=== PATIENT | female | born 2000 | race American Indian/Alaskan Native ===

== ENCOUNTER 2020-10-08 19:17 | Emergency (ER) | payer SELFPAY ==
[2020-10-08 20:09] VITALS: BP 136/85
[2020-10-08 20:33] LABS: Basophils % (Auto) 0.4 % (0.0-1.8); Eosinophils # (Auto) 0.1 K/mm3 (0.0-0.4); Eosinophils % (Auto) 1.2 % (0.0-4.3); Hematocrit 36.9 % (30.3-42.9); Hemoglobin 12.5 gm/dl (10.1-14.3); Lymphocytes # (Auto) 1.5 K/mm3 (1.2-5.4); Lymphocytes % (Auto) 17.7 % (13.4-35.0); Mean Corpuscular HGB Conc 34 % (30-34); Mean Corpuscular Volume 91 fl (79-97); Monocytes # (Auto) 0.7 K/mm3 (0.0-0.8); Monocytes % (Auto) 8.7 % (0.0-7.3); Platelet Count 305 K/mm3 (140-440); Red Blood Count 4.07 M/mm3 (3.65-5.03); Red Cell Distribution Width 14.5 % (13.2-15.2)
[2020-10-08 20:48] LABS: INR 1.11 (0.87-1.13)
--- NOTE | 2020-10-08 21:22 | Emergency Department Report ---
<SOPHIE FERNÁNDEZ - Last Filed: 10/08/20 22:25> ED Female HPI - General Chief complaint: Vaginal Bleeding Stated complaint: SPOTTING Time Seen by Provider: 10/08/20 20:04 Source: patient Mode of arrival: Ambulatory Limitations: No Limitations - History of Present Illness Initial comments: 20-year-old F [place] female with a new discovered presents emerge department complaining of pelvic pain and vaginal bleeding of unknown etiology which started earlier today. Reports no fever, chills, sweats, no trauma, no nausea, no vomiting, chest pain. MD Complaint: vaginal bleeding, vaginal discharge, pelvic pain Location: suprapubic Radiation: suprapubic Severity: mild, moderate Quality: cramping, dull Consistency: constant Worsens with: none Are you Now?: Yes Associated Symptoms: vaginal bleeding. denies: nausea/vomiting, headaches, loss of appetite, dysuria, shortness of breath, syncope, weakness - Related Data Home Medications Medication Instructions Recorded Confirmed Last Taken Tablet 1 tab PO DAILY 11/01/14 11/27/14 11/23/14 Previous Rx's Medication Instructions Recorded Last Taken Type Docusate Sodium [Colace] 100 mg PO QHS PRN #30 capsule 11/28/14 Unknown Rx Ferrous Sulfate [Feosol 325 MG tab] 325 mg PO BID #60 tablet 11/28/14 Unknown Rx Ibuprofen [Motrin 600 MG tab] 600 mg PO Q6H PRN #60 tablet 11/28/14 Unknown Rx Vit-Fe Fumar-FA [ 1 each PO QDAY #30 tablet 11/28/14 Unknown Rx Vitamin] labetaloL [Labetalol 200mg TAB] 400 mg PO BID #120 tablet 11/28/14 Unknown Rx oxyCODONE /ACETAMINOPHEN [Percocet 2 tab PO Q4H PRN #40 tablet 11/28/14 Unknown Rx 5/325] Acetaminophen [Tylenol] 1 - 2 tab PO Q6HR PRN #30 tablet 10/09/20 Unknown Rx Allergies Allergy/AdvReac Type Severity Reaction Status Date / Time No Known Allergies Allergy Verified 11/01/14 01:05 ED Review of Systems Comment: All other systems reviewed and negative ED Past Medical Hx - Past Medical History Hx Hypertension: No Hx Congestive Heart Failure: No Hx Diabetes: No Hx Deep Vein Thrombosis: No Hx Renal Disease: No Hx Sickle Cell Disease: No Hx Seizures: No Hx Asthma: No Hx COPD: No Hx HIV: No - Social History Smoking Status: Never Smoker Substance Use Type: None - Medications Home Medications: Home Medications Medication Instructions Recorded Confirmed Last Taken Type Tablet 1 tab PO DAILY 11/01/14 11/27/14 11/23/14 History Docusate Sodium [Colace] 100 mg PO QHS PRN #30 capsule 11/28/14 Unknown Rx Ferrous Sulfate [Feosol 325 MG tab] 325 mg PO BID #60 tablet 11/28/14 Unknown Rx Ibuprofen [Motrin 600 MG tab] 600 mg PO Q6H PRN #60 tablet 11/28/14 Unknown Rx Vit-Fe Fumar-FA [ 1 each PO QDAY #30 tablet 11/28/14 Unknown Rx Vitamin] labetaloL [Labetalol 200mg TAB] 400 mg PO BID #120 tablet 11/28/14 Unknown Rx oxyCODONE /ACETAMINOPHEN [Percocet 2 tab PO Q4H PRN #40 tablet 11/28/14 Unknown Rx 5/325] Acetaminophen [Tylenol] 1 - 2 tab PO Q6HR PRN #30 tablet 10/09/20 Unknown Rx ED Physical Exam - General Limitations: No Limitations General appearance: alert, in no apparent distress - Head Head exam: Present: atraumatic, normocephalic - Eye Eye exam: Present: normal appearance, PERRL, EOMI Pupils: Present: normal accommodation - ENT ENT exam: Present: mucous membranes moist - Neck Neck exam: Present: normal inspection - Respiratory Respiratory exam: Present: normal lung sounds bilaterally. Absent: respiratory distress, wheezes, chest wall tenderness, accessory muscle use - Cardiovascular Cardiovascular Exam: Present: regular rate, normal rhythm. Absent: systolic murmur, diastolic murmur, rubs, gallop - GI/Abdominal GI/Abdominal exam: Present: soft, tenderness (Suprapubic region with palpation.), normal bowel sounds - Extremities Exam Extremities exam: Present: normal inspection - Back Exam Back exam: Present: normal inspection - Neurological Exam Neurological exam: Present: alert, oriented X3 - Psychiatric Psychiatric exam: Present: normal affect, normal mood - Skin Skin exam: Present: warm, dry, intact, normal color. Absent: rash ED Course - Consultations Consultation #1: 10/08/20 22:25 Patient signed out to physician apartment community assistant manager Red oSEDO still pending pelvic ultrasound results patient is comfortable in room no acute distress ED Medical Decision Making - Lab Data Result diagrams: 10/08/20 20:17 Lab Results 10/08/20 10/08/20 10/08/20 Range/Units 20:17 20:17 20:17 WBC 8.5 (4.5-11.0) K/mm3 RBC 4.07 (3.65-5.03) M/mm3 Hgb 12.5 (10.1-14.3) gm/dl Hct 36.9 (30.3-42.9) % MCV 91 (79-97) fl MCH 31 (28-32) pg MCHC 34 (30-34) % RDW 14.5 (13.2-15.2) % Plt Count 305 (140-440) K/mm3 Lymph % (Auto) 17.7 (13.4-35.0) % [place] % (Auto) 8.7 H (0.0-7.3) % Eos % (Auto) 1.2 (0.0-4.3) % Baso % (Auto) 0.4 (0.0-1.8) % Lymph # (Auto) 1.5 (1.2-5.4) K/mm3 [place] # (Auto) 0.7 (0.0-0.8) K/mm3 Eos # (Auto) 0.1 (0.0-0.4) K/mm3 Baso # (Auto) 0.0 (0.0-0.1) K/mm3 Seg Neutrophils % 72.0 H (40.0-70.0) % Seg Neutrophils # 6.1 (1.8-7.7) K/mm3 PT 14.2 (12.2-14.9) Sec. INR 1.11 (0.87-1.13) HCG, Quant 88685 H (0-4) mIU/mL ED Disposition Clinical Impression: Threatened miscarriage in early , Abdominal pain during in first trimester, Vaginal bleeding in patient after first trimester Disposition: - TO HOME OR SELFCARE Condition: Stable Instructions: Abdominal Pain During , Entj-[id number], Threatened Miscarriage, Bedd-ft-Eevo, Vaginal Bleeding During , First Trimester, [id number] Additional Instructions: Lab test results were reviewed and are all nonactionable. Transvaginal ultrasound showed bicornate uterus with single IUP on the left measuring 5 weeks and 6 days with heart rate of 81 bpm. Therefore maintain a complete pelvic rest, take Tylenol as needed for pain and follow-up with your MACHINE TOOL TECHNICIAN INSTRUCTOR physician in 3 to 5 days for reevaluation. Return to the ED immediately if symptoms get worse. Prescriptions: Acetaminophen [Tylenol] 1 - 2 tab PO Q6HR PRN #30 tablet PRN Reason: Pain , Severe (7-10) Referrals: SACHIN DOMINGUEZ MD [Staff Physician] - 3-5 Days Print Language: TURKMEN <RED ALFARO - Last Filed: 10/09/20 02:05> ED Review of Systems ROS: Stated complaint: SPOTTING Other details as noted in HPI ED Course Vital Signs 10/08/20 10/08/20 20:06 20:08 Temperature 99.1 F Pulse Rate 89 Respiratory 18 Rate Blood Pressure 136/85 [Right] O2 Sat by Pulse 100 Oximetry ED Medical Decision Making - Lab Data Result diagrams: 10/08/20 20:17 - Radiology Data Radiology results: report reviewed, image reviewed [facility] [address] [place] [address] Ultrasound Report Signed Patient: REJI MADRID MR#: [id number] 42 : 2000 Acct:[id number] Age/Sex: 20 / F ADM Date: 10/08/20 Loc: ED Attending Dr: Ordering Physician: JULES SENA Date of Service: 10/08/20 Procedure(s): US OB <= 14 weeks fetus Accession Number(s): [id number] cc: JULES SENA US OB <= 14 weeks fetus INDICATION / CLINICAL INFORMATION: Vaginal bleeding. COMPARISON: None available. FINDINGS: Single, viable intrauterine , heart rate 81. There is some degree of bicornuate uterus, and the thecal sac is on the left side. [place]-rump length measures 2.4 mm, corresponding to a gestational age of 5 weeks 6 days. Left ovary is normal. Right ovary cannot be identified. There is only very minimal free fluid. IMPRESSION: 1. 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 2. heart rate was only 81 at the time of the exam. Obviously, suggest close follow-up. Signer Name: Nicola Madera MD Signed: 10/08/2020 11:32 PM Workstation Name: [id number] Transcribed By: TM Dictated By: Nicola Madera MD Electronically Authenticated By: Nicola Madera MD Signed Date/Time: 10/08/202331 DD/ 27 TD/TT: Print - Medical Decision Making I seen care of the patient from Hesham Garber PA-C at shift change at 2200 hrs. Please see his HPI for more information about the patient. However the patient is alert A0 20-year-old -[place] female who is 5 days gestation who presented to the ED with diffuse low abdominal pain and vaginal bleeding for the last 2 days worse in the last 12 hours. In the ED, patient is alert and oriented x3 and is not in any distress. Patient was treated with Tylenol for pain. Lab test results were reviewed and are all nonactionable and the [place]CG quant was [id number]. The rest of the lab test results are nonactionable. Transvaginal ultrasound showed a bicornuate uterus, with viable, 5 week 6 day intrauterine on the left. The heart rate was only 81 at the time of the exam. Obviously, suggest close follow-up. On reevaluation, patient 's pain is well controlled medications. Patient was discharged home on pain medications, Tylenol and advised to maintain a complete pelvic rest devoid of any strenuous physical activity or sexual intercourse and to follow-up with MACHINE TOOL TECHNICIAN INSTRUCTOR physician in 2 to 3 days for reevaluation. Patient was advised return to the ED immediately if symptoms get worse. - Differential Diagnosis Threatened miscarriage; Ovarian cyst; UTI; Subchorionic bleed Critical care attestation.: If time is entered above; I have spent that time in minutes in the direct care of this critically ill patient, excluding procedure time. ED Disposition Is pt being admited?: No Does the pt Need Aspirin: No Time of Disposition: 00:05
[2020-10-08 22:45] LABS: Bacteria,Urine 1+ /HPF (Negative); Bilirubin,Urine NEG (Negative); Blood,Urine MOD (Negative); Color,Urine Yellow (Yellow); Mucus,Urine FEW /HPF; Protein,Urine <15 mg/dL mg/dL (Negative); Urobilinogen,Urine < 2.0 mg/dL (<2.0)
[2020-10-08] MEDS ORDERED: ACETAMINOPHEN 500 MG TAB PO ONE (23:18)
[2020-10-08] MEDS ORDERED: METOCLOPRAMIDE 10 MG TAB PO ONE (23:19)
--- NOTE | 2020-10-08 23:36 | Ultrasound Report ---
US OB <= 14 weeks fetus INDICATION / CLINICAL INFORMATION: Vaginal bleeding. COMPARISON: None available. FINDINGS: Single, viable intrauterine , heart rate 81. There is some degree of bicornuate uterus , and the thecal sac is on the left side. [place]-rump length measures 2.4 mm, corresponding to a gestational age of 5 weeks 6 days. Left ovary is normal. Right ovary cannot be identified. There is only very minimal free fluid. IMPRESSION: 1. 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 2. heart rate was only 81 at the time of the exam. Obviously, suggest close follow-up. Signer Name: Nicola Madera MD Signed: 10/08/2020 11:32 PM Workstation Name: [id number]
== END 2020-10-09 00:26 | disposition home or self-care (01) ==
LOC: ED 19:17
DX: O20.0 Threatened abortion (principal); O26.891 Other specified pregnancy related conditions, first trimester; R10.2 Pelvic and perineal pain; Z79.899 Other long term (current) drug therapy; Z3A.01 Less than 8 weeks gestation of pregnancy
CPT/HCPCS: 36415; 76801; 81001; 84702; 85025; 85610

== ENCOUNTER 2021-05-04 09:10 | Emergency (ER) | payer MEDICAID ==
[2021-05-04] MEDS ORDERED: LIDOCAINE (1%) 10 MG/1 ML VIAL 20 ML MDV INFILTRATI ONE (10:34)
[2021-05-04] MEDS ORDERED: HYDROcodone/ACETAMINOPHEN 5-325 MG TAB PO ONE (10:34)
--- NOTE | 2021-05-04 10:35 | Emergency Department Report ---
- General Chief complaint: Skin/Abscess/Foreign Body Stated complaint: PAINFUL CYST VAGINAL AREA Time Seen by Provider: 05/04/21 10:24 Source: patient Mode of arrival: Ambulatory Limitations: No Limitations - History of Present Illness Initial comments: 20-year-old female who is currently about 35 weeks but no significant past medical history presents to the ER today with complaints of pain to her right vaginal area. She states that it started small 3 days ago and has since gotten much bigger. She denies any drainage. She states that the pain is worse with sitting and walking. She states that she has had an abscess to her buttocks in the past but never in the vaginal area. She denies any known history of MRSA. She denies any fever or chills. She denies any related issues today. She is G2, P1 Ab0 MD complaint: abscess/boil -: Gradual, days(s) (3) - Related Data Home Medications Medication Instructions Recorded Confirmed Last Taken Tablet 1 tab PO DAILY 11/01/14 11/27/14 11/23/14 Previous Rx's Medication Instructions Recorded Last Taken Type Ferrous Sulfate [Feosol 325 MG tab] 325 mg PO BID #60 tablet 11/28/14 Unknown Rx Vit-Fe Fumar-FA [ 1 each PO QDAY #30 tablet 11/28/14 Unknown Rx Vitamin] labetaloL [Labetalol 200mg TAB] 400 mg PO BID #120 tablet 11/28/14 Unknown Rx Acetaminophen/Codeine [Tylenol 1 tab PO Q6H PRN #12 tab 05/04/21 Unknown Rx /Codeine # 3 tab] Clindamycin [Clindamycin CAP] 300 mg PO Q6H #40 capsule 05/04/21 Unknown Rx Allergies Allergy/AdvReac Type Severity Reaction Status Date / Time No Known Allergies Allergy Verified 11/01/14 01:05 Abscess Boil HPI - HPI Chief Complaint: Skin/Abscess/Foreign Body Stated Complaint: PAINFUL CYST VAGINAL AREA Time Seen by Provider: 05/04/21 10:24 Home Medications: Home Medications Medication Instructions Recorded Confirmed Last Taken Tablet 1 tab PO DAILY 11/01/14 11/27/14 11/23/14 Previous Rx's Medication Instructions Recorded Last Taken Type Ferrous Sulfate [Feosol 325 MG tab] 325 mg PO BID #60 tablet 11/28/14 Unknown Rx Vit-Fe Fumar-FA [ 1 each PO QDAY #30 tablet 11/28/14 Unknown Rx Vitamin] labetaloL [Labetalol 200mg TAB] 400 mg PO BID #120 tablet 11/28/14 Unknown Rx Acetaminophen/Codeine [Tylenol 1 tab PO Q6H PRN #12 tab 05/04/21 Unknown Rx /Codeine # 3 tab] Clindamycin [Clindamycin CAP] 300 mg PO Q6H #40 capsule 05/04/21 Unknown Rx Allergies/Adverse Reactions: Allergies Allergy/AdvReac Type Severity Reaction Status Date / Time No Known Allergies Allergy Verified 11/01/14 01:05 ED Review of Systems ROS: Stated complaint: PAINFUL CYST VAGINAL AREA Other details as noted in HPI Comment: All other systems reviewed and negative Constitutional: denies: chills, fever Eyes: denies: eye pain, eye discharge, vision change ENT: denies: ear pain, throat pain, dental pain, hearing loss, epistaxis, congestion Respiratory: denies: cough, shortness of breath, SOB with exertion, SOB at rest, wheezing Cardiovascular: denies: chest pain, palpitations, edema, syncope, paroxysmal nocturnal dyspnea Gastrointestinal: denies: abdominal pain, nausea, vomiting, diarrhea, c onstipation, hematemesis, melena, hematochezia Genitourinary: denies: urgency, dysuria, frequency, hematuria, discharge, abnormal menses, dyspareunia Musculoskeletal: denies: back pain, joint swelling, arthralgia Skin: other (abscess right vaginal area ). denies: change in color, change in hair/nails, pruritus Neurological: denies: headache, weakness, numbness, paresthesias, confusion, abnormal gait, vertigo Psychiatric: denies: anxiety, depression, auditory hallucinations, visual hallucinations, homicidal thoughts, suicidal thoughts Hematological/Lymphatic: denies: easy bleeding, easy bruising, swollen glands ED Past Medical Hx - Past Medical History Previous Medical History?: No Hx Hypertension: No Hx Congestive Heart Failure: No Hx Diabetes: No Hx Deep Vein Thrombosis: No Hx Renal Disease: No Hx Sickle Cell Disease: No Hx Seizures: No Hx Asthma: No Hx COPD: No Hx HIV: No - Surgical History Past Surgical History?: No - Social History Smoking Status: Never Smoker Substance Use Type: None - Medications Home Medications: Home Medications Medication Instructions Recorded Confirmed Last Taken Type Tablet 1 tab PO DAILY 11/01/14 11/27/14 11/23/14 History Ferrous Sulfate [Feosol 325 MG tab] 325 mg PO BID #60 tablet 11/28/14 Unknown Rx Vit-Fe Fumar-FA [ 1 each PO QDAY #30 tablet 11/28/14 Unknown Rx Vitamin] labetaloL [Labetalol 200mg TAB] 400 mg PO BID #120 tablet 11/28/14 Unknown Rx Acetaminophen/Codeine [Tylenol 1 tab PO Q6H PRN #12 tab 05/04/21 Unknown Rx /Codeine # 3 tab] Clindamycin [Clindamycin CAP] 300 mg PO Q6H #40 capsule 05/04/21 Unknown Rx ED Physical Exam - General Limitations: No Limitations General appearance: alert, in distress (secondary to pain ) - Head Head exam: Present: atraumatic, normocephalic, normal inspection - Eye Eye exam: Present: normal appearance - ENT ENT exam: Present: mucous membranes moist - Neck Neck exam: Present: normal inspection - Respiratory Respiratory exam: Present: normal lung sounds bilaterally. Absent: respiratory distress - Cardiovascular Cardiovascular Exam: Present: regular rate, normal rhythm. Absent: systolic murmur, diastolic murmur, rubs, gallop - GI/Abdominal GI/Abdominal exam: Present: soft. Absent: distended, tenderness, guarding, rebound, rigid - External exam: Present: other (Large Bartholin's abscess noted to right vaginal area in the introitus. No apparent signs of drainage. Area is very tender to palpate. No streaking cellulitis or significant lymphangitis noted.) - Extremities Exam Extremities exam: Present: normal inspection - Neurological Exam Neurological exam: Present: alert, oriented X3, CN II-XII intact - Psychiatric Psychiatric exam: Present: normal affect, normal mood ED Course Vital Signs 05/04/21 05/04/21 05/04/21 09:20 11:20 11:31 Temperature 98.7 F Pulse Rate 100 H 79 Respiratory 18 20 20 Rate Blood Pressure 129/72 114/73 O2 Sat by Pulse 98 99 Oximetry 05/04/21 11:45 Temperature Pulse Rate 98 H Respiratory 23 Rate Blood Pressure 117/76 O2 Sat by Pulse 99 Oximetry - I & D Right Vagina Type of Procedure: Complex Site: large Blade Size: 11 I & D Procedure: betadine prep (words catheter) Progress: location: right bartholins area Anesthesia used: lidocaine 1% large amount of pus drained words catheter placed pt tolerated procedure, no complications ED Medical Decision Making - Medical Decision Making Patient with an obvious, very large Bartholin's abscess to her right vaginal area near the introitus. Initially try to I&D the abscess, but patient was very anxious, hyperventilating and not cooperating of I&D. After discussing case with Dr. Mcfarland, recommended giving her IM morphine and then trying again. 1302: Bartholin's abscess drained, see procedure note for details, patient resting comfortably and has calmed down since her procedure. Again no complaints today. No vaginal bleeding noted externally, no abdominal tenderness. Repeat vital signs are stable. Patient will be started on antibiotics, and given medications to help with pain. Patient instructed to return in 2 days to have her catheter removed, or if the catheter falls out on its own then no need to return, but recommend that she keep her appointment with her SEMICONDUCTOR TESTING GROUP LEADER next week. Patient expressed understanding of all instructions and agree with plan. Patient stable at time of discharge Critical care attestation.: If time is entered above; I have spent that time in minutes in the direct care of this critically ill patient, excluding procedure time. ED Disposition Clinical Impression: Bartholin's gland abscess Disposition: 01 HOME / SELF CARE / HOMELESS Is pt being admited?: No Does the pt Need Aspirin: No Condition: Stable Instructions: Skin Abscess, [id number], Bartholin's Cyst, [id number] Additional Instructions: Do not remove the Word catheter but if it falls off on its own is okay. Return in 2 days to have it removed if it does not fall out. I recommend that you start taking the clindamycin today, and take it to completion. Take the Tylenol threes as needed to help with any pain. Keep the area clean with soap and water. Do not use any peroxide or alcohol. Keep your appointment with the SEMICONDUCTOR TESTING GROUP LEADER next week. Return to the ER if any symptoms changes or worsens in any way Prescriptions: Clindamycin [Clindamycin CAP] 300 mg PO Q6H #40 capsule Acetaminophen/Codeine [Tylenol /Codeine # 3 tab] 1 tab PO Q6H PRN #12 tab PRN Reason: Pain , Severe (7-10) Referrals: [facility]AD[facility] [Provider Group] - 3-5 Days Forms: Work/School Release Form(ED) Time of Disposition: 13:07 Print Language: THAI
[2021-05-04] MEDS ORDERED: ONDANSETRON 4 MG ODT TAB PO ONE (11:57)
[2021-05-04] MEDS ORDERED: MORPHINE 4 MG/1 ML INJ IM ONE (11:57)
[2021-05-04 13:45] VITALS: BP 120/69
== END 2021-05-04 13:15 | disposition home or self-care (01) ==
LOC: ED 09:10
DX: O26.893 Other specified pregnancy related conditions, third trimester (principal); N75.1 Abscess of Bartholin's gland; Z3A.35 35 weeks gestation of pregnancy
CPT/HCPCS: 56420; 96372; 99282; J2270; Q0162